=== PATIENT | female | born 1935 | race Caucasian/White ===

== ENCOUNTER 2016-08-21 09:16 | Emergency (ER) | payer MEDICARE ==
[2016-08-21] MEDS ORDERED: DIPHENHYDRAMINE HCL 50 MG/1 ML VIAL ONE (09:43)
[2016-08-21] MEDS ORDERED: SODIUM CHLORIDE 0.9% 1,000 ML ONE (09:43)
[2016-08-21 09:45] LABS: ABSOLUTE NEUTROPHIL COUNT 6.7 K/mm3 (1.8-7.7); BASO # 0.1 K/mm3 (0.0-0.2); BASO % 0.6 % (0.2-1.0); EOS # 0.3 (0.0-0.5); EOS % 2.8 % (0.9-2.9); HEMATOCRIT 41.8 % (37.0-47.0); HEMOGLOBIN 13.6 gm/l (12.0-16.0); IMM NEUT # 0.2 K/mm3 (0-0.2); IMM NEUT% 1.7 % (0-1); LYMPH # 2.8 (1.0-4.8); LYMPH % 26.2 % (15-45); MEAN CELL VOLUME 85.5 fl (81.0-99.0); MEAN CORPUSCULAR HEMOGLOBIN 27.8 pg (27.0-31.0); MEAN CORPUSCULAR HGB CONC 32.5 g/dl (33.0-37.0); MEAN PLATELET VOLUME 10.3 fl (7.4-10.4); MONO # 0.5 (0.0-0.8); MONO % 5.1 % (4-12); NEUT % 63.6 % (43-75); PLATELET COUNT 211 K/mm3 (130-400); RED CELL DISTRIBUTION WIDTH 12.6 % (11.5-14.5)
[2016-08-21 10:01] LABS: ALB/GLOB RATIO 1.2 (>1.0)
[2016-08-21] MEDS ORDERED: POTASSIUM CHLORIDE 10MEQ/100ML 100 ML IV ONE (10:33)
[2016-08-21] MEDS ORDERED: ENEMA--adult 1 EACH ONE (11:00)
[2016-08-21 11:42] LABS: PH,URINE 6.5 (5.0-8.0); URINE BILIRUBIN NEGATIVE (NEGATIVE); URINE BLOOD TRACE (NEGATIVE); URINE GLUCOSE (UA) 3+ (NEGATIVE); URINE LEUKOCYTE ESTERASE NEGATIVE (NEGATIVE); URINE NITRITE POSITIVE (NEGATIVE); URINE PROTEIN 2+ (NEGATIVE); URINE UROBILINOGEN NORMAL (0-1 mg/dl)
[2016-08-21 11:47] LABS: URINE APPEARANCE HAZY; URINE COLOR YELLOW
[2016-08-21 12:11] LABS: URINE BACTERIA 4+; URINE RBC 0-2 /hpf; URINE WBC 0-1 /hpf
[2016-08-21] MEDS ORDERED: CEFTRIAXONE 1 GRAM DUPLEX 50 ML IV ONE (12:22)
== END 2016-08-21 13:19 | disposition home or self-care (01) ==
LOC: ED 09:16
DX: N39.0 Urinary tract infection, site not specified (principal); R11.2 Nausea with vomiting, unspecified; E87.6 Hypokalemia; I10 Essential (primary) hypertension; E11.9 Type 2 diabetes mellitus without complications; Z79.84 Long term (current) use of oral hypoglycemic drugs
CPT/HCPCS: 83690; 85025; 87086; 80053; 87186; 84484; 81001; 96375; 99284; 96361 ×2; 96365; 96367; 99283; J1200; A9270; J3480; J7030; J0696